=== PATIENT | male | born 1980 | race Caucasian/White ===

== ENCOUNTER 2018-09-11 22:56 | Emergency (ER) | payer SELFPAY ==
[2018-09-11 23:01] VITALS: BMI 26.6
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
[2018-09-12 01:09] VITALS: RESP 14
[2018-09-12 02:37] VITALS: O2SAT 97
[2018-09-12 05:38] VITALS: BP 120/80; PULSE 70; TEMP 97.8
== END 2018-09-12 05:38 | disposition home or self-care (01) ==
LOC: C.ER 22:56
DX: F19.10 Other psychoactive substance abuse, uncomplicated (principal)
CPT/HCPCS: 96372; 99284; J2060; J3486